=== PATIENT | female | born 1945 | race Caucasian/White ===

== ENCOUNTER 2017-07-15 11:38 | Outpatient (CLI) | payer MEDICARE, OTHER ==
--- NOTE | 2017-07-15 18:37 | Diagnostic Imaging Report ---
SARA LEZAMA [facility] [address] [facility] [address] [address] Report Submission Date: Jul 15, 2017 12:27:04 PM CDT Patient Study Name: YASEMIN OBRIEN Date: Jul 15, 2017 11:57:50 AM CDT Modality Type: DX Gender: F Description: UPPER EXTREMITY : 41 Institution: [facility] Physician: SARA LEZAMA Examination: Plain film right hand History: PAIN IN 4TH-5TH METACARPAL; IMPACT INJURY (Hx) Comparison exams: None available Findings: 3 views the right hand demonstrates diffuse osteopenia. Fracture fixation hardware involving the radius. Articular degenerative changes. Oblique lucency involving the 5th metacarpal. Remaining cortical margins are without other gross abnormality. No soft tissue abnormality. Impression: Extensive osteopenia, degenerative changes, and post surgical fixation changes. Oblique fracture 5th metacarpal. Electronically signed on Jul 15, 2017 12:27:04 PM CDT by: Karl FERRO
== END 2017-07-15 11:40 ==
LOC: RAD 11:38
PROVIDERS: ATTEND Family Medicine
DX: M79.644 Pain in right finger(s) (principal); T14.90XA Injury, unspecified, initial encounter; Y92.9 Unspecified place or not applicable
CPT/HCPCS: 73130

== ENCOUNTER 2019-04-11 12:38 | Emergency (ER) | payer MEDICARE, OTHER ==
--- NOTE | 2019-04-11 12:54 | ED Physician Documentation ---
Upper Respiratory Symptoms - HISTORIAN Historian: patient - HPI Stated Complaint: Cough Chief Complaint: Cough/ Upper Respiratory Additional Information: 74 year old female presents to the ER with c/o cough and congestion that started several days ago; denies productive cough; denies any f/c/n/v/d. States that she just doesn't feel well. Onset: days ago Context: denies: recent foreign travel, multiple patients, same sx Severity: mild Associated Symptoms: runny nose, sinus pain, sinus drainage. denies: fever, chills - ROS CONST/EYES: weakness CVS/RESP: none LYMPH: denies: leg swelling GI/: none NEURO/PSYCH: denies: dizziness MS/SKIN: denies: joint pain - PAST HX Lung Disease: none Other History: diabetes Type 2, hypertension Immunizations: pneumovax, UTD Allergies/Adverse Reactions: Allergies Allergy/AdvReac Type Severity Reaction Status Date / Time desipramine Allergy Verified 04/11/19 12:51 sulfamethoxazole Allergy Verified 04/11/19 12:51 [From Bactrim] trimethoprim [From Bactrim] Allergy Verified 04/11/19 12:51 Home Medications: Ambulatory Orders Medication Instructions Recorded Aspirin [Paloma] 1 tab PO DAILY 04/11/19 Atorvastatin Calcium 1 tab PO DAILY 04/11/19 Levothyroxine Sodium [Synthroid] 1 tab PO DAILY 04/11/19 Losartan Potassium [Cozaar] 1 tab PO DAILY 04/11/19 Metformin HCl [Metformin ER 1 tab PO DAILY 04/11/19 Gastric] Omeprazole (Nf) [Prilosec (Nf)] 1 tab PO DAILY 04/11/19 - SOCIAL HX Smoking History: non-smoker Alcohol Use: none Drug Use: none - FAMILY HX Family History: none - VITAL SIGNS Vital Signs: Vital Signs Temp Pulse Resp BP Pulse Ox 98.5 F 96 H 16 168/74 96 04/11/19 12:56 04/11/19 12:56 04/11/19 12:56 04/11/19 12:56 04/11/19 12:56 - REVIEWED ASSESSMENTS Nursing Assessment Reviewed: Yes Vitals Reviewed: Yes Upper Respiratory Symptoms - EXAM General Appearance: alert, mild distress EENT: eyes nml inspection, nml ENT inspection, lids & conjunct. nml, PERRL, ear nml, pain over sinuses, rhinorrhea, airway nml Neck: normal inspection, supple Respiratory: no resp. distress, breath sounds nml, speaks full sentences Abdomen: non-tender, nml bowel sounds CVS: heart sounds normal, equal pulses Skin: color nml, no rash, warm,dry Extremities: normal range of motion Neuro/Psych: oriented x3, neuro intact, mood/affect nml Discharge Clincal Impression: Acute upper respiratory infection Referrals: Luis Eduardo Chambers MD [Primary Care Provider] - 2 Days Additional Instructions: Take Robitussin AC 1-2 tsp by mouth every 6 hours as needed for cough (Change position slowly to decrease risk of fall) Take Zithromax (antibiotic) as directed on packet Increase water intake High protein diet Humidifier Follow up with PCP next week for Re-Evaluation Condition: Good Disposition: 01 HOME, SELF-CARE Decision to Admit: NO Decision Time: 13:28
[2019-04-11 12:56] VITALS: BP 168/74
== END 2019-04-11 12:56 | disposition home or self-care (01) ==
LOC: ED 12:38
DX: J06.9 Acute upper respiratory infection, unspecified (principal)